=== PATIENT | male | born 1945 | race Asian ===

== ENCOUNTER 2023-05-25 12:53 | Inpatient (IN) | payer OTHER ==
[~2023-05-25] VITALS: Ht 157.5 cm; Wt 60.8 kg
[2023-05-25 12:57] VITALS: BP_SYST 112; PULSE 107; RESP 20; TEMP 96.8; O2SAT 95
[2023-05-25] MEDS ORDERED: cefTRIAXone 1 GM IVPB PREMIX 50 ML IV ONE (13:30)
[2023-05-25] MEDS ORDERED: NS 1000 ML IV.SOLN IV ONE (13:30)
[2023-05-25 13:50] LABS: BASOPHILS # (AUTO) 0.1 K/uL (0.0-0.2); BASOPHILS % (AUTO) 0.7 % (0.0-2.0); EOSINOPHILS % (AUTO) 0.1 % (0.0-4.0); HEMATOCRIT 39.6 % (36-54); LYMPHOCYTES # (AUTO) 1.7 K/uL (1.0-5.5); LYMPHOCYTES % (AUTO) 20.6 % (20.5-51.5); MEAN CORPUSCULAR HEMOGLOBIN 32 pg (27-31); MEAN CORPUSCULAR HGB CONC 33 % (32-36); MEAN CORPUSCULAR VOLUME 98 fL (79.0-98.0); MONOCYTES # (AUTO) 1.3 K/uL (0.0-1.0); MONOCYTES % (AUTO) 15.5 % (1.7-9.3); NEUTROPHILS # (AUTO) 5.3 K/uL (1.8-7.7); NEUTROPHILS % (AUTO) 63.1 % (40.0-70.0); PLATELET COUNT (AUTO) 198 K/uL (130-430); RED BLOOD CELL COUNT(AUTO) 4.05 MIL/uL (4.2-6.2); RED CELL DISTRIBUTION WIDTH 13.5 % (9.0-15.0); WHITE BLOOD COUNT (AUTO) 8.4 K/uL (4.8-10.8)
[2023-05-25 14:23] LABS: ALANINE AMINOTRANSFERASE 34 U/L (12-78); ALBUMIN 3.2 g/dL (3.4-4.8); ANION GAP 10 (5-15); ASPARTATE AMINOTRANSFERASE 35 U/L (10-37); CARBON DIOXIDE 31 mmol/L (23-29); CHLORIDE 104 mmol/L (98-107); CREATININE 0.99 mg/dL (0.55-1.30); GLUCOSE 226 mg/dL (74-106); POTASSIUM 3.6 mmol/L (3.5-5.1); SODIUM SERUM 145 mmol/L (136-145); TOTAL PROTEIN, SERUM 6.6 g/dL (6.4-8.3); UREA NITROGEN, BLOOD 16 mg/dL (8-21)
[2023-05-25 14:28] LABS: CALCIUM 13.8 mg/dL (8.4-11.0)
[2023-05-25] MEDS ORDERED: NACL 0.9% 1,000 ML IV ONE (14:30)
[2023-05-25 15:54] LABS: PHOSPHORUS 3.3 mg/dL (2.7-4.5)
[2023-05-25 15:56] LABS: BILIRUBIN,URINE NEGATIVE (NEGATIVE); BLOOD, URINE NEGATIVE (NEGATIVE); CLARITY/URINE SLIGHTLY HAZY (CLEAR); COLOR,URINE YELLOW (YELLOW); GLUCOSE,URINE NEGATIVE (NEGATIVE); KETONES,URINE NEGATIVE (NEGATIVE); LEUKOCYTE ESTERASE ,URINE NEGATIVE (NEGATIVE); NITRITE, URINE NEGATIVE (NEGATIVE); PH,URINE 5.5 (5.0-8.0); PROTEIN URINE NEGATIVE (NEGATIVE); UROBILINOGEN,URINE 0.2 (0.2-1.0)
[2023-05-25] MEDS ORDERED: iohexoL 350 mgI/mL, 100 ML INFUS..BTL IV ONE (15:56)
[2023-05-25] MEDS: 0.45% NACL 1,000 ML IV SCH (16:47)
[2023-05-25] MEDS ORDERED: PAMIDRONATE DISODIUM 30 MG in NS 500 ML IV ONE (18:00)
[2023-05-25 21:00] VITALS: BP_SYST 126; PULSE 99; RESP 18; TEMP 97.2
[2023-05-26 06:13] VITALS: BP_SYST 107; PULSE 92; RESP 18; TEMP 97.9; O2SAT 99
[2023-05-26 08:00] VITALS: BP_SYST 135; PULSE 95; RESP 20; TEMP 97.3; O2SAT 96
[2023-05-26 08:06] LABS: FREE PSA 0.16 ng/mL; PROSTATE SPECIFIC AG TOTAL 0.5 ng/mL (0.0-4.0)
[2023-05-26 12:00] VITALS: BP_SYST 118; PULSE 96; RESP 18; TEMP 97.2; O2SAT 94
[2023-05-26] MEDS ORDERED: AZITHROMYCIN 250 MG in NS 250 ML IV SCH (14:00)
[2023-05-26 14:12] LABS: INFLUENZA TYPE A negative (NEGATIVE); INFLUENZA TYPE B NEGATIVE (NEGATIVE)
[2023-05-26 19:06] VITALS: BP_SYST 122; PULSE 98; RESP 16; TEMP 97.6; O2SAT 94
[2023-05-26 20:00] VITALS: BP_SYST 123; PULSE 95; RESP 18; TEMP 98.5; O2SAT 95
[2023-05-26] MEDS: 0.45% NACL 1,000 ML IV SCH (20:32)
[2023-05-27] VITALS (7 sets, daily range): BP systolic 115–133; PULSE 80–99; RESP 18; TEMP 97.3–98.3; O2SAT 93–96
[2023-05-27 04:48] LABS: BASOPHILS % (AUTO) 0.5 % (0.0-2.0); EOSINOPHILS # (AUTO) 0.1 K/uL (0.0-0.4); EOSINOPHILS % (AUTO) 0.8 % (0.0-4.0); HEMATOCRIT 33.6 % (36-54); HEMOGLOBIN 11.2 g/dL (14.0-18.0); LYMPHOCYTES # (AUTO) 2.5 K/uL (1.0-5.5); LYMPHOCYTES % (AUTO) 32.7 % (20.5-51.5); MEAN CORPUSCULAR HEMOGLOBIN 33 pg (27-31); MEAN CORPUSCULAR HGB CONC 33 % (32-36); MEAN CORPUSCULAR VOLUME 98 fL (79.0-98.0); MONOCYTES # (AUTO) 0.8 K/uL (0.0-1.0); MONOCYTES % (AUTO) 10.3 % (1.7-9.3); NEUTROPHILS # (AUTO) 4.3 K/uL (1.8-7.7); NEUTROPHILS % (AUTO) 55.7 % (40.0-70.0); PLATELET COUNT (AUTO) 153 K/uL (130-430); RED BLOOD CELL COUNT(AUTO) 3.45 MIL/uL (4.2-6.2); RED CELL DISTRIBUTION WIDTH 13.2 % (9.0-15.0); WHITE BLOOD COUNT (AUTO) 7.7 K/uL (4.8-10.8)
[2023-05-27 04:57] LABS: ALANINE AMINOTRANSFERASE 28 U/L (12-78); ALBUMIN 2.4 g/dL (3.4-4.8); ANION GAP 5 (5-15); ASPARTATE AMINOTRANSFERASE 35 U/L (10-37); CALCIUM 10.3 mg/dL (8.4-11.0); CARBON DIOXIDE 30 mmol/L (23-29); CHLORIDE 108 mmol/L (98-107); CREATININE 0.83 mg/dL (0.55-1.30); GLUCOSE 109 mg/dL (74-106); SODIUM SERUM 143 mmol/L (136-145); TOTAL BILIRUBIN 0.7 mg/dL (0.0-1.0); TOTAL PROTEIN, SERUM 5.2 g/dL (6.4-8.3); UREA NITROGEN, BLOOD 11 mg/dL (8-21)
[2023-05-27] MEDS: 0.45% NACL 1,000 ML IV SCH ×2 (08:30→20:42)
[2023-05-27] MEDS ORDERED: KCL 20 mEq in 100 mL (PREMIX) 100 ML IV ONE ×2 (12:00→14:00)
[2023-05-27 12:06] LABS: A/G RATIO 0.7 (0.7-1.7); ALBUMIN 2.2 g/dL (2.9-4.4); ALPHA-1-GLOBULIN 0.2 g/dL (0.0-0.4); ALPHA-2-GLOBULIN 0.6 g/dL (0.4-1.0); BETA GLOBULIN 1.1 g/dL (0.7-1.3); GAMMA GLOBULIN 1.5 g/dL (0.4-1.8); GLOBULIN, TOTAL 3.3 g/dL (2.2-3.9); M-SPIKE Not Observed g/dL (Not Observed)
[2023-05-27 13:24] LABS: ALBUMIN 2.7 g/dL (3.4-4.8); ANION GAP 4 (5-15); ASPARTATE AMINOTRANSFERASE 41 U/L (10-37); CALCIUM 10.1 mg/dL (8.4-11.0); CARBON DIOXIDE 32 mmol/L (23-29); CHLORIDE 102 mmol/L (98-107); CREATININE 1.04 mg/dL (0.55-1.30); GLUCOSE 232 mg/dL (74-106); PHOSPHORUS 2.3 mg/dL (2.7-4.5); POTASSIUM 3.4 mmol/L (3.5-5.1); SODIUM SERUM 138 mmol/L (136-145); TOTAL BILIRUBIN 0.5 mg/dL (0.0-1.0); TOTAL PROTEIN, SERUM 5.6 g/dL (6.4-8.3); UREA NITROGEN, BLOOD 14 mg/dL (8-21)
[2023-05-27 13:33] LABS: ALANINE AMINOTRANSFERASE 26 U/L (12-78)
[2023-05-27 16:07] LABS: CALCIUM, IONIZED 6.7 mg/dL (4.5-5.6)
[2023-05-27] MEDS ORDERED: NS IV ONE (19:15)
[2023-05-27] MEDS ORDERED: NA PHOS 30 MM in NS 250 ML IV ONE (19:15)
[2023-05-27] MEDS ORDERED: NA PHOS IV ONE (19:15)
[2023-05-27] MEDS: AZITHROMYCIN 250 MG in NS 250 ML IV SCH (21:59)
[2023-05-27] MEDS: PANTOPRAZOLE SODIUM 40 MG/VIAL (PROTONIX) IVP SCH (23:21)
[2023-05-27] MEDS: MAG-AL HYDROX/SIMETH 30 ML UDC PO PRN (23:21)
[2023-05-27] MEDS ORDERED: SODIUM PHOSPHATE IN 0.9 % NACL 250 ML IV ONE (23:55)
[2023-05-28] MEDS ORDERED: NA PHOS 30 MM in NS 250 ML IV ONE (01:00)
[2023-05-28] MEDS ORDERED: NS IV ONE (01:15)
[2023-05-28] MEDS ORDERED: NA PHOS IV ONE (01:15)
[2023-05-28 05:30] LABS: BASOPHILS % (AUTO) 0.5 % (0.0-2.0); EOSINOPHILS # (AUTO) 0.1 K/uL (0.0-0.4); HEMATOCRIT 31.6 % (36-54); HEMOGLOBIN 10.7 g/dL (14.0-18.0); LYMPHOCYTES # (AUTO) 2.6 K/uL (1.0-5.5); LYMPHOCYTES % (AUTO) 34.2 % (20.5-51.5); MEAN CORPUSCULAR HEMOGLOBIN 33 pg (27-31); MEAN CORPUSCULAR HGB CONC 34 % (32-36); MEAN CORPUSCULAR VOLUME 97 fL (79.0-98.0); MONOCYTES # (AUTO) 1.1 K/uL (0.0-1.0); MONOCYTES % (AUTO) 14.6 % (1.7-9.3); NEUTROPHILS # (AUTO) 3.7 K/uL (1.8-7.7); NEUTROPHILS % (AUTO) 49.7 % (40.0-70.0); PLATELET COUNT (AUTO) 146 K/uL (130-430); RED BLOOD CELL COUNT(AUTO) 3.26 MIL/uL (4.2-6.2); RED CELL DISTRIBUTION WIDTH 13.4 % (9.0-15.0); WHITE BLOOD COUNT (AUTO) 7.5 K/uL (4.8-10.8)
[2023-05-28 05:59] LABS: ANION GAP 8 (5-15); CALCIUM 9.2 mg/dL (8.4-11.0); CARBON DIOXIDE 28 mmol/L (23-29); CHLORIDE 107 mmol/L (98-107); CREATININE 0.65 mg/dL (0.55-1.30); GLUCOSE 122 mg/dL (74-106); POTASSIUM 3.1 mmol/L (3.5-5.1); SODIUM SERUM 143 mmol/L (136-145); UREA NITROGEN, BLOOD 12 mg/dL (8-21)
[2023-05-28 08:00] VITALS: O2SAT 94
[2023-05-28 08:30] VITALS: BP_SYST 119; PULSE 94; RESP 18; TEMP 98; O2SAT 94
[2023-05-28] MEDS: PANTOPRAZOLE SODIUM 40 MG/VIAL (PROTONIX) IVP SCH ×2 (09:04→23:18)
[2023-05-28] MEDS ORDERED: KCL 40 mEq in 100 mL (PREMIX) 40 MEQ, LIDOCAINE JECT 2% PF 100 MG 75 MG in NS 150 ML IV ONE (10:15)
[2023-05-28] MEDS ORDERED: POTASSIUM CHLORIDE 20 MEQ TAB.PRT.SR PO ONE (10:45)
[2023-05-28] MEDS: 0.45% NACL 1,000 ML IV SCH ×3 (11:07→23:20)
[2023-05-28 12:50] VITALS: BP_SYST 118; PULSE 96; RESP 17; TEMP 98.1; O2SAT 98
[2023-05-28] MEDS: POTASSIUM CHLORIDE 20 mEq in 100 mL (PREMIX) 100 ML x 2 doses IV SCH ×2 (13:57→16:13)
[2023-05-28] MEDS: MAG-AL HYDROX/SIMETH 30 ML UDC PO PRN (13:59)
[2023-05-28 16:00] VITALS: BP_SYST 120; PULSE 95; RESP 18; TEMP 98; O2SAT 96
[2023-05-28] MEDS ORDERED: POLYETHYLENE GLYCOL 3350, 17 GM/ POWD.PACK PO ONE (17:45)
[2023-05-28 20:00] VITALS: BP_SYST 125; PULSE 96; RESP 18; TEMP 97.6; O2SAT 97
[2023-05-28] MEDS: AZITHROMYCIN 250 MG in NS 250 ML IV SCH (23:19)
[2023-05-29] VITALS (7 sets, daily range): BP systolic 111–151; PULSE 98–110; RESP 16–18; TEMP 97.4–98.3; O2SAT 95–98
[2023-05-29] MEDS ORDERED: POLYETHYLENE GLYCOL 3350, 17 GM/ POWD.PACK PO ONE (06:00)
[2023-05-29 06:28] LABS: ALANINE AMINOTRANSFERASE 35 U/L (12-78); ALBUMIN 2.4 g/dL (3.4-4.8); ANION GAP 9 (5-15); ASPARTATE AMINOTRANSFERASE 45 U/L (10-37); CALCIUM 9.4 mg/dL (8.4-11.0); CARBON DIOXIDE 27 mmol/L (23-29); CHLORIDE 107 mmol/L (98-107); CREATININE 0.68 mg/dL (0.55-1.30); GLUCOSE 127 mg/dL (74-106); PHOSPHORUS 1.8 mg/dL (2.7-4.5); POTASSIUM 3.6 mmol/L (3.5-5.1); SODIUM SERUM 143 mmol/L (136-145); TOTAL BILIRUBIN 0.6 mg/dL (0.0-1.0); TOTAL PROTEIN, SERUM 5.2 g/dL (6.4-8.3); UREA NITROGEN, BLOOD 10 mg/dL (8-21)
[2023-05-29 07:24] LABS: TOTAL IRON BIND. CAPACITY 208 ug/dL (250-450)
[2023-05-29] MEDS ORDERED: NA PHOS 30 MM in NS 250 ML IV ONE ×2 (10:30)
[2023-05-29] MEDS: PANTOPRAZOLE SODIUM 40 MG/VIAL (PROTONIX) IVP SCH ×2 (10:38→21:05)
[2023-05-29] MEDS ORDERED: MAGNESIUM SULFATE IN WATER 100 ML IV ONE (11:00)
[2023-05-29] MEDS: 0.45% NACL 1,000 ML IV SCH ×2 (12:39→18:20)
[2023-05-29] MEDS ORDERED: BISACODYL 5 MG TABLET.DR (DULCOLAX) PO ONE (17:00)
[2023-05-29] MEDS ORDERED: GOLYTELY / COLYTE SOLUTION 4 LITERS PO ONE (18:00)
[2023-05-29] MEDS: AZITHROMYCIN 250 MG in NS 250 ML IV SCH (21:06)
[2023-05-30 00:37] VITALS: BP_SYST 95; PULSE 83; RESP 15; TEMP 97; O2SAT 91
[2023-05-30 05:29] LABS: ALANINE AMINOTRANSFERASE 35 U/L (12-78); ALBUMIN 2.4 g/dL (3.4-4.8); ANION GAP 8 (5-15); ASPARTATE AMINOTRANSFERASE 46 U/L (10-37); CALCIUM 9.4 mg/dL (8.4-11.0); CARBON DIOXIDE 29 mmol/L (23-29); CHLORIDE 108 mmol/L (98-107); GLUCOSE 106 mg/dL (74-106); PHOSPHORUS 2.4 mg/dL (2.7-4.5); POTASSIUM 3.3 mmol/L (3.5-5.1); SODIUM SERUM 145 mmol/L (136-145); TOTAL BILIRUBIN 0.8 mg/dL (0.0-1.0); TOTAL PROTEIN, SERUM 5.1 g/dL (6.4-8.3); UREA NITROGEN, BLOOD 4 mg/dL (8-21)
[2023-05-30 05:44] LABS: INR 1.1 (0.80-1.20); PROTHROMBIN TIME 11.7 SECS (9.5-12.5)
[2023-05-30 08:00] VITALS: BP_SYST 122; PULSE 102; RESP 16; TEMP 97.4; O2SAT 96
[2023-05-30] MEDS: PANTOPRAZOLE SODIUM 40 MG/VIAL (PROTONIX) IVP SCH ×2 (09:11→22:50)
[2023-05-30 11:30] VITALS: BP_SYST 119; PULSE 98; RESP 17; TEMP 98.2; O2SAT 95
[2023-05-30] MEDS ORDERED: SIMETHICONE 40 MG/0.6 ML ML ONE (15:29)
[2023-05-30] MEDS ORDERED: MEPERIDINE 100 MG INJ. 100 MG/ML VIAL ONE (15:46)
[2023-05-30] MEDS ORDERED: MIDAZOLAM HCL 5 MG/5 ML VIAL ONE (15:46)
[2023-05-30 20:00] VITALS: BP_SYST 125; PULSE 95; RESP 18; TEMP 97.5; O2SAT 96
[2023-05-30] MEDS: AZITHROMYCIN 250 MG in NS 250 ML IV SCH (22:51)
[2023-05-30] MEDS: 0.45% NACL 1,000 ML IV SCH (22:52)
[2023-05-31] VITALS (7 sets, daily range): BP systolic 119–157; PULSE 100–117; RESP 16–20; TEMP 97.8–99; O2SAT 91–96
[2023-05-31 01:06] LABS: FOLATE (FOLIC ACID) 16.8 ng/mL (>3.0)
[2023-05-31] MEDS: 0.45% NACL 1,000 ML IV SCH ×2 (04:24→17:59)
[2023-05-31 05:05] LABS: BASOPHILS # (AUTO) 0.1 K/uL (0.0-0.2); BASOPHILS % (AUTO) 0.8 % (0.0-2.0); EOSINOPHILS # (AUTO) 0.1 K/uL (0.0-0.4); EOSINOPHILS % (AUTO) 0.9 % (0.0-4.0); HEMATOCRIT 32.8 % (36-54); HEMOGLOBIN 11.2 g/dL (14.0-18.0); LYMPHOCYTES % (AUTO) 37.9 % (20.5-51.5); MEAN CORPUSCULAR HEMOGLOBIN 34 pg (27-31); MEAN CORPUSCULAR HGB CONC 34 % (32-36); MEAN CORPUSCULAR VOLUME 98 fL (79.0-98.0); MONOCYTES # (AUTO) 1.1 K/uL (0.0-1.0); MONOCYTES % (AUTO) 10.8 % (1.7-9.3); NEUTROPHILS # (AUTO) 5.3 K/uL (1.8-7.7); NEUTROPHILS % (AUTO) 49.6 % (40.0-70.0); PLATELET COUNT (AUTO) 155 K/uL (130-430); RED BLOOD CELL COUNT(AUTO) 3.36 MIL/uL (4.2-6.2); RED CELL DISTRIBUTION WIDTH 13.6 % (9.0-15.0); WHITE BLOOD COUNT (AUTO) 10.7 K/uL (4.8-10.8)
[2023-05-31 05:23] LABS: ALANINE AMINOTRANSFERASE 34 U/L (12-78); ALBUMIN 2.3 g/dL (3.4-4.8); ANION GAP 9 (5-15); ASPARTATE AMINOTRANSFERASE 54 U/L (10-37); CALCIUM 10.3 mg/dL (8.4-11.0); CARBON DIOXIDE 27 mmol/L (23-29); CHLORIDE 107 mmol/L (98-107); GLUCOSE 79 mg/dL (74-106); POTASSIUM 3.6 mmol/L (3.5-5.1); SODIUM SERUM 143 mmol/L (136-145); TOTAL BILIRUBIN 0.8 mg/dL (0.0-1.0); TOTAL PROTEIN, SERUM 5.1 g/dL (6.4-8.3); UREA NITROGEN, BLOOD 7 mg/dL (8-21)
[2023-05-31] MEDS: PANTOPRAZOLE SODIUM 40 MG/VIAL (PROTONIX) IVP SCH (10:23)
[2023-05-31] MEDS ORDERED: DIATR MEGLU/DIATRIZ SOD 30 ML SOLUTION PO ONE (10:44)
[2023-05-31] MEDS ORDERED: DEXL60CA6 PO (13:30)
[2023-05-31] MEDS: AZITHROMYCIN 250 MG in NS 250 ML IV SCH (21:00)
[2023-05-31] MEDS: PANTOPRAZOLE SODIUM 40 MG TAB PO SCH (21:06)
[2023-06-01] VITALS: BP_SYST 151; PULSE 111; RESP 21; TEMP 98; O2SAT 91
[2023-06-01 03:07] VITALS: BP_SYST 157; PULSE 117; RESP 20; TEMP 98.2; O2SAT 91
[2023-06-01] MEDS: 0.45% NACL 1,000 ML IV SCH ×2 (05:54→20:39)
[2023-06-01 08:00] VITALS: BP_SYST 149; PULSE 111; RESP 16; TEMP 98.8; O2SAT 95
[2023-06-01] MEDS: PANTOPRAZOLE SODIUM 40 MG TAB PO SCH ×2 (10:46→21:45)
[2023-06-01] MEDS ORDERED: SUCR1TAB2 PO (14:04)
[2023-06-01 15:07] VITALS: BP_SYST 122; PULSE 114; RESP 16; TEMP 98.1; O2SAT 95
[2023-06-01] MEDS: SUCRALFATE 1 GM TABLET PO SCH ×2 (15:19→21:45)
[2023-06-01 15:20] VITALS: BP_SYST 122; PULSE 114; RESP 16; TEMP 98.1; O2SAT 94
[2023-06-01 20:10] VITALS: BP_SYST 150; PULSE 69; RESP 16; TEMP 99.1; O2SAT 93
[2023-06-01 22:11] LABS: HEMATOCRIT 35.7 % (36-54); HEMOGLOBIN 11.9 g/dL (14.0-18.0)
[2023-06-02 00:39] VITALS: BP_SYST 100; PULSE 116; RESP 16; TEMP 97.1; O2SAT 96
[2023-06-02 00:43] VITALS: BP_SYST 142; PULSE 116; RESP 18; TEMP 97.1; O2SAT 93
[2023-06-02 05:22] LABS: BASOPHILS # (AUTO) 0.1 K/uL (0.0-0.2); HEMOGLOBIN 11.5 g/dL (14.0-18.0)
[2023-06-02 05:30] LABS: BASOPHILS % (AUTO) 0.5 % (0.0-2.0); HEMATOCRIT 33.4 % (36-54); LYMPHOCYTES % (AUTO) 44.6 % (20.5-51.5); MEAN CORPUSCULAR HEMOGLOBIN 33 pg (27-31); MEAN CORPUSCULAR HGB CONC 34 % (32-36); MEAN CORPUSCULAR VOLUME 96 fL (79.0-98.0); MONOCYTES # (AUTO) 1.7 K/uL (0.0-1.0); MONOCYTES % (AUTO) 12.8 % (1.7-9.3); NEUTROPHILS # (AUTO) 5.6 K/uL (1.8-7.7); NEUTROPHILS % (AUTO) 42.1 % (40.0-70.0); PLATELET COUNT (AUTO) 143 K/uL (130-430); RED BLOOD CELL COUNT(AUTO) 3.47 MIL/uL (4.2-6.2); RED CELL DISTRIBUTION WIDTH 13.9 % (9.0-15.0); WHITE BLOOD COUNT (AUTO) 13.4 K/uL (4.8-10.8)
[2023-06-02 05:43] LABS: ALANINE AMINOTRANSFERASE 36 U/L (12-78); ALBUMIN 2.3 g/dL (3.4-4.8); ANION GAP 10 (5-15); ASPARTATE AMINOTRANSFERASE 60 U/L (10-37); CARBON DIOXIDE 28 mmol/L (23-29); CHLORIDE 102 mmol/L (98-107); CREATININE 0.89 mg/dL (0.55-1.30); GLUCOSE 149 mg/dL (74-106); POTASSIUM 3.3 mmol/L (3.5-5.1); SODIUM SERUM 140 mmol/L (136-145); TOTAL BILIRUBIN 1.6 mg/dL (0.0-1.0); UREA NITROGEN, BLOOD 13 mg/dL (8-21)
[2023-06-02 08:00] VITALS: BP_SYST 132; PULSE 114; RESP 16; TEMP 97.1; O2SAT 93
[2023-06-02 09:07] LABS: COCCIDIOIDES AB IGG 0.5 IV (<=0.9)
[2023-06-02] MEDS: PANTOPRAZOLE SODIUM 40 MG TAB PO SCH ×2 (09:20→20:31)
[2023-06-02] MEDS: SUCRALFATE 1 GM TABLET PO SCH ×3 (09:20→20:31)
[2023-06-02] MEDS: 0.45% NACL 1,000 ML IV SCH ×2 (09:25→23:39)
[2023-06-02] MEDS ORDERED: ZOLEDRONIC ACID 4 MG in NS 100 ML IV ONE (11:30)
[2023-06-02 12:00] VITALS: BP_SYST 106; PULSE 85; RESP 18; TEMP 98.6; O2SAT 94
[2023-06-02 16:00] VITALS: BP_SYST 108; PULSE 82; RESP 18; TEMP 98; O2SAT 96
[2023-06-02 20:05] VITALS: BP_SYST 130; PULSE 116; RESP 18; TEMP 99.1; O2SAT 94
[2023-06-02] MEDS ORDERED: KCL 20 mEq in 100 mL (PREMIX) 100 ML IV ONE (22:00)
[2023-06-03 00:41] VITALS: BP_SYST 140; PULSE 114; RESP 19; TEMP 98; O2SAT 92
[2023-06-03] MEDS ORDERED: KCL 20 mEq in 100 mL (PREMIX) 100 ML IV ONE (00:45)
[2023-06-03 05:55] LABS: BASOPHILS # (AUTO) 0.1 K/uL (0.0-0.2); BASOPHILS % (AUTO) 0.5 % (0.0-2.0); EOSINOPHILS % (AUTO) 0.1 % (0.0-4.0); HEMATOCRIT 32.8 % (36-54); HEMOGLOBIN 11.2 g/dL (14.0-18.0); LYMPHOCYTES # (AUTO) 7.3 K/uL (1.0-5.5); LYMPHOCYTES % (AUTO) 48.7 % (20.5-51.5); MEAN CORPUSCULAR HEMOGLOBIN 34 pg (27-31); MEAN CORPUSCULAR HGB CONC 34 % (32-36); MEAN CORPUSCULAR VOLUME 98 fL (79.0-98.0); MONOCYTES # (AUTO) 1.3 K/uL (0.0-1.0); MONOCYTES % (AUTO) 8.9 % (1.7-9.3); NEUTROPHILS # (AUTO) 6.3 K/uL (1.8-7.7); NEUTROPHILS % (AUTO) 41.8 % (40.0-70.0); PLATELET COUNT (AUTO) 133 K/uL (130-430); RED BLOOD CELL COUNT(AUTO) 3.35 MIL/uL (4.2-6.2); RED CELL DISTRIBUTION WIDTH 13.8 % (9.0-15.0); WHITE BLOOD COUNT (AUTO) 15.1 K/uL (4.8-10.8)
[2023-06-03 06:02] LABS: ANION GAP 8 (5-15); CARBON DIOXIDE 30 mmol/L (23-29); CHLORIDE 103 mmol/L (98-107); CREATININE 0.95 mg/dL (0.55-1.30); GLUCOSE 196 mg/dL (74-106); POTASSIUM 3.7 mmol/L (3.5-5.1); SODIUM SERUM 141 mmol/L (136-145); UREA NITROGEN, BLOOD 21 mg/dL (8-21)
[2023-06-03 06:04] LABS: CALCIUM 13.4 mg/dL (8.4-11.0)
[2023-06-03 08:00] VITALS: BP_SYST 141; PULSE 110; RESP 17; TEMP 96.3; O2SAT 90
[2023-06-03] MEDS: SUCRALFATE 1 GM TABLET PO SCH ×3 (09:00→21:14)
[2023-06-03] MEDS: PANTOPRAZOLE SODIUM 40 MG TAB PO SCH ×3 (09:00→21:14)
[2023-06-03] MEDS ORDERED: METOPROLOL SUCCINATE 25 MG TAB.SR.24H (TOPROL XL) PO ONE (09:30)
[2023-06-03] MEDS: NACL 0.9% 1,000 ML IV SCH ×2 (09:50→21:16)
[2023-06-03] MEDS ORDERED: LACTOBACILLUS RHAMNOSUS GG 1 CAP CAPSULE PO ONE (11:00)
[2023-06-03 12:46] VITALS: BP_SYST 112; PULSE 108; RESP 16; TEMP 98.9; O2SAT 94
[2023-06-03 16:00] VITALS: BP_SYST 129; PULSE 99; RESP 20; TEMP 96.9; O2SAT 93
[2023-06-03 19:55] VITALS: O2SAT 95
[2023-06-03 19:56] VITALS: BP_SYST 135; PULSE 108; RESP 18; TEMP 97.6; O2SAT 95
[2023-06-04 00:53] VITALS: BP_SYST 117; PULSE 110; RESP 21; TEMP 97.4; O2SAT 93
[2023-06-04 05:57] LABS: BASOPHILS # (AUTO) 0.1 K/uL (0.0-0.2); BASOPHILS % (AUTO) 0.5 % (0.0-2.0); EOSINOPHILS % (AUTO) 0.1 % (0.0-4.0); HEMOGLOBIN 10.5 g/dL (14.0-18.0); LYMPHOCYTES # (AUTO) 6.4 K/uL (1.0-5.5); LYMPHOCYTES % (AUTO) 46.9 % (20.5-51.5); MEAN CORPUSCULAR HEMOGLOBIN 33 pg (27-31); MEAN CORPUSCULAR HGB CONC 34 % (32-36); MEAN CORPUSCULAR VOLUME 98 fL (79.0-98.0); MONOCYTES # (AUTO) 1.7 K/uL (0.0-1.0); MONOCYTES % (AUTO) 12.5 % (1.7-9.3); NEUTROPHILS # (AUTO) 5.4 K/uL (1.8-7.7); PLATELET COUNT (AUTO) 118 K/uL (130-430); RED BLOOD CELL COUNT(AUTO) 3.18 MIL/uL (4.2-6.2); RED CELL DISTRIBUTION WIDTH 14.2 % (9.0-15.0); WHITE BLOOD COUNT (AUTO) 13.6 K/uL (4.8-10.8)
[2023-06-04 06:06] LABS: ERYTHROCYTE SEDIMENTATION RATE < 1 MM/HR (0-15)
[2023-06-04 06:07] LABS: ANION GAP 7 (5-15); CALCIUM 11.6 mg/dL (8.4-11.0); CARBON DIOXIDE 30 mmol/L (23-29); CHLORIDE 103 mmol/L (98-107); CREATININE 0.93 mg/dL (0.55-1.30); GLUCOSE 108 mg/dL (74-106); POTASSIUM 3.2 mmol/L (3.5-5.1); SODIUM SERUM 140 mmol/L (136-145); UREA NITROGEN, BLOOD 22 mg/dL (8-21)
[2023-06-04 08:00] VITALS: BP_SYST 112; PULSE 105; RESP 16; TEMP 99; O2SAT 95; O2SAT 98
[2023-06-04] MEDS ORDERED: METOPROLOL SUCCINATE 25 MG TAB.SR.24H (TOPROL XL) PO SCH (09:00)
[2023-06-04] MEDS: PANTOPRAZOLE SODIUM 40 MG TAB PO SCH ×2 (10:08→20:42)
[2023-06-04] MEDS: SUCRALFATE 1 GM TABLET PO SCH ×3 (10:08→20:42)
[2023-06-04] MEDS: LACTOBACILLUS RHAMNOSUS GG 1 CAP CAPSULE PO SCH (10:09)
[2023-06-04] MEDS: NACL 0.9% 1,000 ML IV SCH (12:23)
[2023-06-04 12:33] VITALS: BP_SYST 118; PULSE 102; RESP 17; TEMP 97.4; O2SAT 95
[2023-06-04] MEDS ORDERED: POTASSIUM CHLORIDE 20 MEQ TAB.PRT.SR PO ONE (13:30)
[2023-06-04 16:06] VITALS: BP_SYST 116; PULSE 100; RESP 17; TEMP 97.7; O2SAT 96
[2023-06-04 20:00] VITALS: BP_SYST 96; PULSE 91; RESP 16; TEMP 98.1; O2SAT 93
[2023-06-05 01:25] VITALS: BP_SYST 114; PULSE 103; RESP 17; TEMP 97.7; O2SAT 93
[2023-06-05] MEDS: NACL 0.9% 1,000 ML IV SCH ×2 (02:33→16:51)
[2023-06-05 06:01] LABS: ERYTHROCYTE SEDIMENTATION RATE < 1 MM/HR (0-15)
[2023-06-05 06:13] LABS: BASOPHILS # (AUTO) 0.1 K/uL (0.0-0.2); BASOPHILS % (AUTO) 0.5 % (0.0-2.0); EOSINOPHILS % (AUTO) 0.1 % (0.0-4.0); HEMATOCRIT 29.3 % (36-54); HEMOGLOBIN 9.9 g/dL (14.0-18.0); LYMPHOCYTES # (AUTO) 6.8 K/uL (1.0-5.5); MEAN CORPUSCULAR HEMOGLOBIN 34 pg (27-31); MEAN CORPUSCULAR HGB CONC 34 % (32-36); MEAN CORPUSCULAR VOLUME 99 fL (79.0-98.0); MONOCYTES # (AUTO) 1.7 K/uL (0.0-1.0); MONOCYTES % (AUTO) 12.6 % (1.7-9.3); NEUTROPHILS % (AUTO) 36.8 % (40.0-70.0); PLATELET COUNT (AUTO) 102 K/uL (130-430); RED BLOOD CELL COUNT(AUTO) 2.97 MIL/uL (4.2-6.2); RED CELL DISTRIBUTION WIDTH 14.3 % (9.0-15.0); WHITE BLOOD COUNT (AUTO) 13.5 K/uL (4.8-10.8)
[2023-06-05 06:24] LABS: ANION GAP 8 (5-15); CALCIUM 10.5 mg/dL (8.4-11.0); CARBON DIOXIDE 29 mmol/L (23-29); CHLORIDE 107 mmol/L (98-107); CREATININE 0.84 mg/dL (0.55-1.30); GLUCOSE 83 mg/dL (74-106); POTASSIUM 3.3 mmol/L (3.5-5.1); SODIUM SERUM 144 mmol/L (136-145); UREA NITROGEN, BLOOD 22 mg/dL (8-21)
[2023-06-05 08:00] VITALS: O2SAT 95
[2023-06-05] MEDS: LACTOBACILLUS RHAMNOSUS GG 1 CAP CAPSULE PO SCH (09:01)
[2023-06-05] MEDS: SUCRALFATE 1 GM TABLET PO SCH ×3 (09:01→21:38)
[2023-06-05] MEDS: PANTOPRAZOLE SODIUM 40 MG TAB PO SCH ×2 (09:01→21:38)
[2023-06-05] MEDS: METOPROLOL SUCCINATE 50 MG TAB.SR.24H (TOPROL XL) PO SCH (09:02)
[2023-06-05] MEDS ORDERED: ACETAMINOPHEN 500 MG TABLET PO PRN (10:15)
[2023-06-05] MEDS: ACETAMINOPHEN 325 MG TABLET PO PRN (10:44)
[2023-06-05] MEDS ORDERED: ACETAMINOPHEN 325 MG TABLET PO PRN (10:45)
[2023-06-05 11:33] VITALS: BP_SYST 95; PULSE 92; RESP 18; TEMP 98.6; O2SAT 95
[2023-06-05] MEDS ORDERED: POTASSIUM CHLORIDE 20 MEQ TAB.PRT.SR PO ONE (14:45)
[2023-06-05 15:37] VITALS: BP_SYST 106; PULSE 90; RESP 18; TEMP 97.5; O2SAT 97
[2023-06-05 19:30] VITALS: BP_SYST 124; PULSE 92; RESP 18; TEMP 99
[2023-06-06 01:53] VITALS: BP_SYST 112; PULSE 84; RESP 16; TEMP 98.5; O2SAT 96
[2023-06-06 04:10] LABS: ERYTHROCYTE SEDIMENTATION RATE < 1 MM/HR (0-15)
[2023-06-06 04:21] LABS: BASOPHILS # (AUTO) 0.1 K/uL (0.0-0.2); BASOPHILS % (AUTO) 0.6 % (0.0-2.0); EOSINOPHILS % (AUTO) 0.1 % (0.0-4.0); HEMATOCRIT 30.1 % (36-54); LYMPHOCYTES # (AUTO) 8.6 K/uL (1.0-5.5); LYMPHOCYTES % (AUTO) 58.4 % (20.5-51.5); MEAN CORPUSCULAR HEMOGLOBIN 33 pg (27-31); MEAN CORPUSCULAR HGB CONC 33 % (32-36); MEAN CORPUSCULAR VOLUME 100 fL (79.0-98.0); MONOCYTES # (AUTO) 1.2 K/uL (0.0-1.0); MONOCYTES % (AUTO) 8.5 % (1.7-9.3); NEUTROPHILS # (AUTO) 4.8 K/uL (1.8-7.7); NEUTROPHILS % (AUTO) 32.4 % (40.0-70.0); PLATELET COUNT (AUTO) 99 K/uL (130-430); RED BLOOD CELL COUNT(AUTO) 3.02 MIL/uL (4.2-6.2); RED CELL DISTRIBUTION WIDTH 14.7 % (9.0-15.0); WHITE BLOOD COUNT (AUTO) 14.8 K/uL (4.8-10.8)
[2023-06-06] MEDS: NACL 0.9% 1,000 ML IV SCH ×2 (04:39→09:58)
[2023-06-06 04:41] LABS: ALANINE AMINOTRANSFERASE 22 U/L (12-78); ANION GAP 9 (5-15); ASPARTATE AMINOTRANSFERASE 70 U/L (10-37); CALCIUM 10.4 mg/dL (8.4-11.0); CARBON DIOXIDE 26 mmol/L (23-29); CHLORIDE 106 mmol/L (98-107); CREATININE 0.87 mg/dL (0.55-1.30); GLUCOSE 75 mg/dL (74-106); POTASSIUM 3.5 mmol/L (3.5-5.1); SODIUM SERUM 141 mmol/L (136-145); TOTAL BILIRUBIN 2.5 mg/dL (0.0-1.0); TOTAL PROTEIN, SERUM 4.5 g/dL (6.4-8.3); UREA NITROGEN, BLOOD 20 mg/dL (8-21)
[2023-06-06 08:00] VITALS: BP_SYST 121; PULSE 95; RESP 16; TEMP 98.8; O2SAT 95
[2023-06-06] MEDS: LACTOBACILLUS RHAMNOSUS GG 1 CAP CAPSULE PO SCH (09:56)
[2023-06-06] MEDS: PANTOPRAZOLE SODIUM 40 MG TAB PO SCH ×2 (09:56→21:19)
[2023-06-06] MEDS: SUCRALFATE 1 GM TABLET PO SCH ×3 (09:56→21:19)
[2023-06-06] MEDS: METOPROLOL SUCCINATE 50 MG TAB.SR.24H (TOPROL XL) PO SCH (09:56)
[2023-06-06 11:16] VITALS: BP_SYST 131; PULSE 104; RESP 20; TEMP 98.7; O2SAT 97
[2023-06-06 16:39] VITALS: BP_SYST 121; PULSE 97; RESP 20; TEMP 98; O2SAT 98
[2023-06-06 20:00] VITALS: BP_SYST 121; PULSE 99; RESP 18; TEMP 97.1; O2SAT 96
[2023-06-07 00:43] VITALS: BP_SYST 122; PULSE 98; RESP 19; TEMP 97.7; O2SAT 96
[2023-06-07 04:55] LABS: ERYTHROCYTE SEDIMENTATION RATE < 1 MM/HR (0-15)
[2023-06-07 04:58] LABS: BASOPHILS # (AUTO) 0.1 K/uL (0.0-0.2); BASOPHILS % (AUTO) 0.5 % (0.0-2.0); HEMATOCRIT 30.8 % (36-54); HEMOGLOBIN 10.3 g/dL (14.0-18.0); LYMPHOCYTES # (AUTO) 9.4 K/uL (1.0-5.5); LYMPHOCYTES % (AUTO) 56.7 % (20.5-51.5); MEAN CORPUSCULAR HEMOGLOBIN 33 pg (27-31); MEAN CORPUSCULAR HGB CONC 33 % (32-36); MEAN CORPUSCULAR VOLUME 99 fL (79.0-98.0); MONOCYTES # (AUTO) 1.7 K/uL (0.0-1.0); MONOCYTES % (AUTO) 10.3 % (1.7-9.3); NEUTROPHILS # (AUTO) 5.4 K/uL (1.8-7.7); NEUTROPHILS % (AUTO) 32.5 % (40.0-70.0); PLATELET COUNT (AUTO) 89 K/uL (130-430); RED BLOOD CELL COUNT(AUTO) 3.11 MIL/uL (4.2-6.2); WHITE BLOOD COUNT (AUTO) 16.5 K/uL (4.8-10.8)
[2023-06-07 05:15] LABS: ANION GAP 12 (5-15); CALCIUM 11.1 mg/dL (8.4-11.0); CARBON DIOXIDE 22 mmol/L (23-29); CHLORIDE 104 mmol/L (98-107); CREATININE 0.89 mg/dL (0.55-1.30); GLUCOSE 93 mg/dL (74-106); POTASSIUM 3.2 mmol/L (3.5-5.1); SODIUM SERUM 138 mmol/L (136-145); UREA NITROGEN, BLOOD 14 mg/dL (8-21)
[2023-06-07 08:40] VITALS: BP_SYST 124; PULSE 110; RESP 18; TEMP 98.6; O2SAT 95
[2023-06-07] MEDS: SUCRALFATE 1 GM TABLET PO SCH ×3 (09:33→20:38)
[2023-06-07] MEDS: PANTOPRAZOLE SODIUM 40 MG TAB PO SCH ×2 (09:33→20:38)
[2023-06-07] MEDS: LACTOBACILLUS RHAMNOSUS GG 1 CAP CAPSULE PO SCH (09:33)
[2023-06-07] MEDS: METOPROLOL SUCCINATE 50 MG TAB.SR.24H (TOPROL XL) PO SCH (09:34)
[2023-06-07 11:30] VITALS: BP_SYST 108; PULSE 98; RESP 17; TEMP 98.4; O2SAT 95
[2023-06-07] MEDS: FLUCONAZOLE 200 mg/ NS 100 ML IV SCH (11:40)
[2023-06-07] MEDS ORDERED: methylPREDNISolone SOD SUCC/PF 62.5 MG/ML VIAL IVP SCH (11:45)
[2023-06-07] MEDS ORDERED: KCL 20 mEq in 100 mL (PREMIX) 100 ML IV ONE (12:00)
[2023-06-07] MEDS: D5W IV SCH (13:44)
[2023-06-07] MEDS: METHYLPREDNISOLONE SOD SUCC IV SCH (13:44)
[2023-06-07 17:34] VITALS: BP_SYST 124; PULSE 101; RESP 17; TEMP 97.9; O2SAT 95
[2023-06-07 21:30] VITALS: O2SAT 95
[2023-06-08] VITALS (12 sets, daily range): BP systolic 88–127; PULSE 89–118; RESP 16–19; TEMP 96.8–98; O2SAT 93–97
[2023-06-08 05:05] LABS: BASOPHILS # (AUTO) 0.1 K/uL (0.0-0.2); BASOPHILS % (AUTO) 0.5 % (0.0-2.0); HEMATOCRIT 31.8 % (36-54); HEMOGLOBIN 10.5 g/dL (14.0-18.0); LYMPHOCYTES # (AUTO) 12.2 K/uL (1.0-5.5); LYMPHOCYTES % (AUTO) 68.1 % (20.5-51.5); MEAN CORPUSCULAR HEMOGLOBIN 33 pg (27-31); MEAN CORPUSCULAR HGB CONC 33 % (32-36); MEAN CORPUSCULAR VOLUME 100 fL (79.0-98.0); MONOCYTES # (AUTO) 0.3 K/uL (0.0-1.0); MONOCYTES % (AUTO) 1.8 % (1.7-9.3); NEUTROPHILS # (AUTO) 5.3 K/uL (1.8-7.7); NEUTROPHILS % (AUTO) 29.6 % (40.0-70.0); PLATELET COUNT (AUTO) 84 K/uL (130-430); RED BLOOD CELL COUNT(AUTO) 3.18 MIL/uL (4.2-6.2); WHITE BLOOD COUNT (AUTO) 17.9 K/uL (4.8-10.8)
[2023-06-08 05:17] LABS: ALANINE AMINOTRANSFERASE 29 U/L (12-78); ANION GAP 10 (5-15); ASPARTATE AMINOTRANSFERASE 65 U/L (10-37); CALCIUM 11.1 mg/dL (8.4-11.0); CARBON DIOXIDE 25 mmol/L (23-29); CHLORIDE 106 mmol/L (98-107); CREATININE 0.87 mg/dL (0.55-1.30); GLUCOSE 258 mg/dL (74-106); SODIUM SERUM 141 mmol/L (136-145); TOTAL BILIRUBIN 3.2 mg/dL (0.0-1.0); TOTAL PROTEIN, SERUM 4.5 g/dL (6.4-8.3); UREA NITROGEN, BLOOD 26 mg/dL (8-21)
[2023-06-08] MEDS ORDERED: PROPOFOL 200MG/ 20ML VIAL (DIPRIVAN) IV ONE (07:30)
[2023-06-08] MEDS ORDERED: HEPARIN SODIUM, PORCINE 10,000 UNITS/ 10 ML VIAL ONE (07:30)
[2023-06-08] MEDS ORDERED: PHENYLEPHRINE HCL 10 MG/ML VIAL (NEOSYNEPHRINE) ONE (07:30)
[2023-06-08] MEDS ORDERED: ceFAZolin SODIUM 1 GM VIAL ONE (07:30)
[2023-06-08] MEDS ORDERED: NS 100 ML BAG ONE (07:30)
[2023-06-08] MEDS ORDERED: METOPROLOL TARTRATE 5 MG/5 ML VIAL ONE (07:30)
[2023-06-08] MEDS ORDERED: LIDOCAINE 1% 10 MG/ML, 20 ML MDV ONE (07:30)
[2023-06-08] MEDS ORDERED: fentaNYL CITRATE/PF 100 MCG/2 ML AMP ONE (07:30)
[2023-06-08] MEDS ORDERED: LR 1,000 ML IV.SOLN IV ONE (07:30)
[2023-06-08] MEDS ORDERED: ePHEDrine sulfate 50 MG/ML VIAL ONE (07:30)
[2023-06-08] MEDS ORDERED: MIDAZOLAM HCL 2 MG/2 ML VIAL (VERSED) ONE (07:30)
[2023-06-08] MEDS: METOPROLOL SUCCINATE 50 MG TAB.SR.24H (TOPROL XL) PO SCH (09:00)
[2023-06-08] MEDS ORDERED: MORPHINE 4 MG INJ. 4 MG/ML VIAL IVP PRN (09:00)
[2023-06-08] MEDS: PANTOPRAZOLE SODIUM 40 MG TAB PO SCH ×2 (09:00→20:35)
[2023-06-08] MEDS: LACTOBACILLUS RHAMNOSUS GG 1 CAP CAPSULE PO SCH (09:00)
[2023-06-08] MEDS: SUCRALFATE 1 GM TABLET PO SCH ×3 (09:00→20:35)
[2023-06-08] MEDS ORDERED: HYDROcodone/ACETAMIN 5-325 MG TAB (NORCO/ VICODIN) PO PRN (09:00)
[2023-06-08] MEDS ORDERED: NALOXONE HCL 0.4 MG/ML AMP (NARCAN) IVP PRN (09:30)
[2023-06-08] MEDS ORDERED: LABETALOL 100 MG/ 20ML VIAL IVP PRN (09:30)
[2023-06-08] MEDS ORDERED: ePHEDrine sulfate 50 MG/ML VIAL IVP PRN (09:30)
[2023-06-08] MEDS ORDERED: MEPERIDINE HCL/PF 25 MG/ML DISP.SYRIN IVP PRN (09:30)
[2023-06-08] MEDS ORDERED: FLUMAZENIL 0.1 MG/ML IVP PRN (09:30)
[2023-06-08] MEDS ORDERED: ONDANSETRON HCL 4 MG/2 ML VIAL IVP PRN (09:30)
[2023-06-08] MEDS ORDERED: HYDROmorphone 1 MG/ML INJ. CARTRIDGE IVP PRN (09:30)
[2023-06-08] MEDS: FLUCONAZOLE 200 mg/ NS 100 ML IV SCH (11:19)
[2023-06-08 11:43] LABS: HEMATOCRIT 32.7 % (36-54); HEMOGLOBIN 10.9 g/dL (14.0-18.0); MEAN CORPUSCULAR HEMOGLOBIN 33 pg (27-31); MEAN CORPUSCULAR HGB CONC 33 % (32-36); MEAN CORPUSCULAR VOLUME 100 fL (79.0-98.0); PLATELET COUNT (AUTO) 75 K/uL (130-430); RED BLOOD CELL COUNT(AUTO) 3.29 MIL/uL (4.2-6.2); RED CELL DISTRIBUTION WIDTH 15.4 % (9.0-15.0); WHITE BLOOD COUNT (AUTO) 22.3 K/uL (4.8-10.8)
[2023-06-08 12:26] LABS: ATYPICAL LYMPHOCYTES % 7 % (0-0); BASOPHILS % (MANUAL) 0 % (0-2); EOSINOPHILS % (MANUAL) 0 % (0-7); LYMPHOCYTES % (MANUAL) 41 % (20-46); MONOCYTES % (MANUAL) 2 % (0-11); PLATELET ESTIMATE DECREASED (ADEQUATE)
[2023-06-08] MEDS: D5W IV SCH (13:58)
[2023-06-08] MEDS: METHYLPREDNISOLONE SOD SUCC IV SCH (13:58)
[2023-06-08 17:06] LABS: QUANTIFERON TB GOLD Indeterminate (Negative)
[2023-06-08] MEDS: ACETAMINOPHEN 325 MG TABLET PO PRN (20:36)
[2023-06-08] MEDS: NACL 0.9% 1,000 ML IV SCH (20:40)
[2023-06-08 22:06] LABS: COCCIDIOIDES AB IGG 0.5 IV (<=0.9)
[2023-06-09] VITALS (8 sets, daily range): BP systolic 99–133; PULSE 81–120; RESP 16–20; TEMP 97.1–98.5; O2SAT 94–97
[2023-06-09 05:11] LABS: BASOPHILS # (AUTO) 0.1 K/uL (0.0-0.2); BASOPHILS % (AUTO) 0.5 % (0.0-2.0); HEMATOCRIT 32.4 % (36-54); HEMOGLOBIN 10.8 g/dL (14.0-18.0); LYMPHOCYTES % (AUTO) 52.1 % (20.5-51.5); MEAN CORPUSCULAR HEMOGLOBIN 33 pg (27-31); MEAN CORPUSCULAR HGB CONC 33 % (32-36); MEAN CORPUSCULAR VOLUME 100 fL (79.0-98.0); MONOCYTES # (AUTO) 1.7 K/uL (0.0-1.0); MONOCYTES % (AUTO) 8.1 % (1.7-9.3); NEUTROPHILS # (AUTO) 8.3 K/uL (1.8-7.7); NEUTROPHILS % (AUTO) 39.3 % (40.0-70.0); PLATELET COUNT (AUTO) 60 K/uL (130-430); RED BLOOD CELL COUNT(AUTO) 3.22 MIL/uL (4.2-6.2); RED CELL DISTRIBUTION WIDTH 15.7 % (9.0-15.0); WHITE BLOOD COUNT (AUTO) 21.2 K/uL (4.8-10.8)
[2023-06-09 05:41] LABS: ANION GAP 11 (5-15); CALCIUM 9.7 mg/dL (8.4-11.0); CARBON DIOXIDE 24 mmol/L (23-29); CHLORIDE 107 mmol/L (98-107); CREATININE 1.06 mg/dL (0.55-1.30); GLUCOSE 334 mg/dL (74-106); POTASSIUM 3.7 mmol/L (3.5-5.1); SODIUM SERUM 142 mmol/L (136-145); UREA NITROGEN, BLOOD 29 mg/dL (8-21)
[2023-06-09] MEDS: SUCRALFATE 1 GM TABLET PO SCH ×3 (09:17→20:36)
[2023-06-09] MEDS: PANTOPRAZOLE SODIUM 40 MG TAB PO SCH ×2 (09:17→20:36)
[2023-06-09] MEDS: LACTOBACILLUS RHAMNOSUS GG 1 CAP CAPSULE PO SCH (09:17)
[2023-06-09] MEDS: METOPROLOL SUCCINATE 50 MG TAB.SR.24H (TOPROL XL) PO SCH (09:30)
[2023-06-09] MEDS: NACL 0.9% 1,000 ML IV SCH ×2 (09:32→23:10)
[2023-06-09] MEDS: FLUCONAZOLE 200 mg/ NS 100 ML IV SCH (11:49)
[2023-06-09] MEDS ORDERED: POTASSIUM CHLORIDE 20 MEQ TAB.PRT.SR PO ONE (12:00)
[2023-06-09] MEDS ORDERED: PRED20TA PO (12:38)
[2023-06-09] MEDS: D5W IV SCH (13:57)
[2023-06-09] MEDS: METHYLPREDNISOLONE SOD SUCC IV SCH (13:57)
[2023-06-10 00:17] VITALS: BP_SYST 120; PULSE 92; RESP 16; TEMP 96.8; O2SAT 96
[2023-06-10 05:42] LABS: BASOPHILS % (AUTO) 0.3 % (0.0-2.0); HEMATOCRIT 27.9 % (36-54); HEMOGLOBIN 9.2 g/dL (14.0-18.0); LYMPHOCYTES # (AUTO) 6.8 K/uL (1.0-5.5); LYMPHOCYTES % (AUTO) 46.2 % (20.5-51.5); MEAN CORPUSCULAR HEMOGLOBIN 33 pg (27-31); MEAN CORPUSCULAR HGB CONC 33 % (32-36); MEAN CORPUSCULAR VOLUME 100 fL (79.0-98.0); MONOCYTES # (AUTO) 0.7 K/uL (0.0-1.0); MONOCYTES % (AUTO) 4.9 % (1.7-9.3); NEUTROPHILS # (AUTO) 7.2 K/uL (1.8-7.7); NEUTROPHILS % (AUTO) 48.6 % (40.0-70.0); RED BLOOD CELL COUNT(AUTO) 2.78 MIL/uL (4.2-6.2); RED CELL DISTRIBUTION WIDTH 15.8 % (9.0-15.0); WHITE BLOOD COUNT (AUTO) 14.8 K/uL (4.8-10.8)
[2023-06-10 06:03] LABS: ALANINE AMINOTRANSFERASE 9 U/L (12-78); ALBUMIN 1.9 g/dL (3.4-4.8); ANION GAP 6 (5-15); ASPARTATE AMINOTRANSFERASE 23 U/L (10-37); CALCIUM 8.6 mg/dL (8.4-11.0); CARBON DIOXIDE 27 mmol/L (23-29); CHLORIDE 109 mmol/L (98-107); CREATININE 0.83 mg/dL (0.55-1.30); GLUCOSE 366 mg/dL (74-106); POTASSIUM 3.9 mmol/L (3.5-5.1); SODIUM SERUM 142 mmol/L (136-145); TOTAL BILIRUBIN 1.9 mg/dL (0.0-1.0); TOTAL PROTEIN, SERUM 4.1 g/dL (6.4-8.3); UREA NITROGEN, BLOOD 26 mg/dL (8-21)
[2023-06-10 06:05] LABS: PLATELET COUNT (AUTO) 41 K/uL (130-430)
[2023-06-10 08:00] VITALS: O2SAT 96
[2023-06-10] MEDS: predniSONE 20 MG TABLET PO SCH (08:19)
[2023-06-10] MEDS: SUCRALFATE 1 GM TABLET PO SCH ×3 (08:20→21:42)
[2023-06-10] MEDS: LACTOBACILLUS RHAMNOSUS GG 1 CAP CAPSULE PO SCH (08:20)
[2023-06-10] MEDS: METOPROLOL SUCCINATE 50 MG TAB.SR.24H (TOPROL XL) PO SCH (08:21)
[2023-06-10] MEDS ORDERED: PANTOPRAZOLE SODIUM 40 MG/VIAL (PROTONIX) IVP SCH (09:00)
[2023-06-10 11:07] LABS: CALCIUM, IONIZED 6.1 mg/dL (4.5-5.6)
[2023-06-10] MEDS: FLUCONAZOLE 200 mg/ NS 100 ML IV SCH (11:12)
[2023-06-10] MEDS: NACL 0.9% 1,000 ML IV SCH (12:30)
[2023-06-10 12:41] VITALS: BP_SYST 125; PULSE 91; RESP 18; TEMP 97.2; O2SAT 97
[2023-06-10 16:00] VITALS: BP_SYST 121; PULSE 90; RESP 17; TEMP 97; O2SAT 96
[2023-06-10 19:30] VITALS: BP_SYST 113; PULSE 94; RESP 18; TEMP 96.8; O2SAT 96
[2023-06-11 00:03] VITALS: BP_SYST 127; PULSE 82; RESP 16; TEMP 96.5; O2SAT 99
[2023-06-11] MEDS: NACL 0.9% 1,000 ML IV SCH ×2 (01:52→20:44)
[2023-06-11 05:19] LABS: BASOPHILS # (AUTO) 0.1 K/uL (0.0-0.2); BASOPHILS % (AUTO) 0.6 % (0.0-2.0); HEMOGLOBIN 9.4 g/dL (14.0-18.0); LYMPHOCYTES # (AUTO) 4.2 K/uL (1.0-5.5); LYMPHOCYTES % (AUTO) 38.5 % (20.5-51.5); MEAN CORPUSCULAR HEMOGLOBIN 34 pg (27-31); MEAN CORPUSCULAR HGB CONC 34 % (32-36); MEAN CORPUSCULAR VOLUME 102 fL (79.0-98.0); MONOCYTES # (AUTO) 1.2 K/uL (0.0-1.0); MONOCYTES % (AUTO) 11.2 % (1.7-9.3); NEUTROPHILS # (AUTO) 5.4 K/uL (1.8-7.7); NEUTROPHILS % (AUTO) 49.7 % (40.0-70.0); RED BLOOD CELL COUNT(AUTO) 2.76 MIL/uL (4.2-6.2); RED CELL DISTRIBUTION WIDTH 15.1 % (9.0-15.0); WHITE BLOOD COUNT (AUTO) 10.8 K/uL (4.8-10.8)
[2023-06-11 05:41] LABS: ALANINE AMINOTRANSFERASE 22 U/L (12-78); ALBUMIN 2.1 g/dL (3.4-4.8); ANION GAP 8 (5-15); ASPARTATE AMINOTRANSFERASE 18 U/L (10-37); CARBON DIOXIDE 27 mmol/L (23-29); CHLORIDE 110 mmol/L (98-107); CREATININE 0.85 mg/dL (0.55-1.30); POTASSIUM 3.1 mmol/L (3.5-5.1); SODIUM SERUM 145 mmol/L (136-145); TOTAL BILIRUBIN 1.6 mg/dL (0.0-1.0); TOTAL PROTEIN, SERUM 4.3 g/dL (6.4-8.3); UREA NITROGEN, BLOOD 24 mg/dL (8-21)
[2023-06-11 05:50] LABS: GLUCOSE 411 mg/dL (74-106)
[2023-06-11 05:52] LABS: PLATELET COUNT (AUTO) 26 K/uL (130-430)
[2023-06-11] MEDS ORDERED: INSULIN REGULAR, HUMAN 100 UNITS/ML, 3 ML VIAL SUBCUT ONE (06:45)
[2023-06-11 08:00] VITALS: BP_SYST 108; PULSE 101; RESP 16; TEMP 98.1; O2SAT 94
[2023-06-11] MEDS: LACTOBACILLUS RHAMNOSUS GG 1 CAP CAPSULE PO SCH (09:13)
[2023-06-11] MEDS: predniSONE 20 MG TABLET PO SCH (09:13)
[2023-06-11] MEDS: METOPROLOL SUCCINATE 50 MG TAB.SR.24H (TOPROL XL) PO SCH (09:14)
[2023-06-11] MEDS: SUCRALFATE 1 GM TABLET PO SCH ×3 (09:14→20:30)
[2023-06-11] MEDS ORDERED: POTASSIUM CHLORIDE 20 MEQ TAB.PRT.SR PO ONE ×2 (11:30→21:00)
[2023-06-11 12:00] VITALS: BP_SYST 117; PULSE 91; RESP 17; TEMP 97.2; O2SAT 97
[2023-06-11] MEDS: FLUCONAZOLE 200 mg/ NS 100 ML IV SCH (12:04)
[2023-06-11] MEDS: INSULIN REGULAR, HUMAN 100 UNITS/ML, 3 ML VIAL (humuLIN R) SUBCUT PRN ×2 (13:41→18:15)
[2023-06-11 13:50] LABS: HEMATOCRIT 26.4 % (36-54); HEMOGLOBIN 8.8 g/dL (14.0-18.0); LYMPHOCYTES # (AUTO) 3.1 K/uL (1.0-5.5); RED CELL DISTRIBUTION WIDTH 15.6 % (9.0-15.0); WHITE BLOOD COUNT (AUTO) 10.2 K/uL (4.8-10.8)
[2023-06-11 13:58] LABS: BASOPHILS % (AUTO) 0.3 % (0.0-2.0); LYMPHOCYTES % (AUTO) 30.4 % (20.5-51.5); MEAN CORPUSCULAR HEMOGLOBIN 34 pg (27-31); MEAN CORPUSCULAR HGB CONC 33 % (32-36); MEAN CORPUSCULAR VOLUME 101 fL (79.0-98.0); MONOCYTES # (AUTO) 1.1 K/uL (0.0-1.0); MONOCYTES % (AUTO) 11.2 % (1.7-9.3); RED BLOOD CELL COUNT(AUTO) 2.62 MIL/uL (4.2-6.2)
[2023-06-11 14:04] LABS: PLATELET COUNT (AUTO) 20 K/uL (130-430)
[2023-06-11 14:20] LABS: NEUTROPHILS % (AUTO) 58.1 % (40.0-70.0)
[2023-06-11] MEDS: PIPERACILLIN/TAZO 3.375/DEX-IS 50 ML IV SCH ×2 (14:46→23:43)
[2023-06-11 16:00] VITALS: BP_SYST 111; PULSE 99; RESP 16; TEMP 97.8; O2SAT 95
[2023-06-11 20:00] VITALS: BP_SYST 113; PULSE 85; RESP 18; TEMP 97.7; O2SAT 98
[2023-06-12 01:00] VITALS: BP_SYST 107; PULSE 71; RESP 18; TEMP 97.7; O2SAT 99
[2023-06-12] MEDS: NACL 0.9% 1,000 ML IV SCH ×2 (04:30→15:19)
[2023-06-12 05:29] LABS: BASOPHILS % (AUTO) 0.2 % (0.0-2.0); HEMATOCRIT 23.9 % (36-54); LYMPHOCYTES # (AUTO) 3.6 K/uL (1.0-5.5); LYMPHOCYTES % (AUTO) 42.4 % (20.5-51.5); MEAN CORPUSCULAR HEMOGLOBIN 34 pg (27-31); MEAN CORPUSCULAR HGB CONC 34 % (32-36); MEAN CORPUSCULAR VOLUME 100 fL (79.0-98.0); MONOCYTES # (AUTO) 0.5 K/uL (0.0-1.0); MONOCYTES % (AUTO) 5.6 % (1.7-9.3); NEUTROPHILS # (AUTO) 4.4 K/uL (1.8-7.7); NEUTROPHILS % (AUTO) 51.8 % (40.0-70.0); RED BLOOD CELL COUNT(AUTO) 2.38 MIL/uL (4.2-6.2); RED CELL DISTRIBUTION WIDTH 15.2 % (9.0-15.0); WHITE BLOOD COUNT (AUTO) 8.4 K/uL (4.8-10.8)
[2023-06-12 06:10] LABS: PLATELET COUNT (AUTO) 24 K/uL (130-430)
[2023-06-12] MEDS: PIPERACILLIN/TAZO 3.375/DEX-IS 50 ML IV SCH (06:12)
[2023-06-12 06:40] LABS: INR 1.3 (0.80-1.20); PROTHROMBIN TIME 13.4 SECS (9.5-12.5)
[2023-06-12 07:36] VITALS: BP_SYST 115; PULSE 85; TEMP 98.2; O2SAT 97
[2023-06-12] MEDS: LACTOBACILLUS RHAMNOSUS GG 1 CAP CAPSULE PO SCH (09:49)
[2023-06-12] MEDS: SUCRALFATE 1 GM TABLET PO SCH ×3 (09:50→20:28)
[2023-06-12] MEDS: predniSONE 20 MG TABLET PO SCH (09:50)
[2023-06-12] MEDS: METOPROLOL SUCCINATE 50 MG TAB.SR.24H (TOPROL XL) PO SCH (09:51)
[2023-06-12] MEDS: FLUCONAZOLE 200 mg/ NS 100 ML IV SCH (11:31)
[2023-06-12] MEDS: INSULIN REGULAR, HUMAN 100 UNITS/ML, 3 ML VIAL (humuLIN R) SUBCUT PRN ×3 (11:36→20:33)
[2023-06-12 12:00] VITALS: BP_SYST 111; PULSE 82; RESP 17; TEMP 98; O2SAT 97
[2023-06-12 16:00] VITALS: BP_SYST 113; PULSE 84; RESP 18; TEMP 98.3; O2SAT 96
[2023-06-12 20:00] VITALS: BP_SYST 104; PULSE 90; RESP 18; TEMP 98; O2SAT 98
[2023-06-13 00:49] VITALS: BP_SYST 120; PULSE 85; RESP 16; TEMP 97.2; O2SAT 100
[2023-06-13 05:30] LABS: INR 1.4 (0.80-1.20); PROTHROMBIN TIME 14.1 SECS (9.5-12.5)
[2023-06-13 05:35] LABS: BASOPHILS % (AUTO) 0.3 % (0.0-2.0); HEMOGLOBIN 8.1 g/dL (14.0-18.0); LYMPHOCYTES # (AUTO) 2.8 K/uL (1.0-5.5); LYMPHOCYTES % (AUTO) 39.5 % (20.5-51.5); MEAN CORPUSCULAR HEMOGLOBIN 34 pg (27-31); MEAN CORPUSCULAR HGB CONC 34 % (32-36); MEAN CORPUSCULAR VOLUME 101 fL (79.0-98.0); MONOCYTES # (AUTO) 0.5 K/uL (0.0-1.0); MONOCYTES % (AUTO) 6.8 % (1.7-9.3); NEUTROPHILS # (AUTO) 3.8 K/uL (1.8-7.7); NEUTROPHILS % (AUTO) 53.4 % (40.0-70.0); RED BLOOD CELL COUNT(AUTO) 2.37 MIL/uL (4.2-6.2); RED CELL DISTRIBUTION WIDTH 15.4 % (9.0-15.0); WHITE BLOOD COUNT (AUTO) 7.2 K/uL (4.8-10.8)
[2023-06-13 05:44] LABS: CARBON DIOXIDE 30 mmol/L (23-29); CHLORIDE 110 mmol/L (98-107); POTASSIUM 3.2 mmol/L (3.5-5.1); SODIUM SERUM 144 mmol/L (136-145)
[2023-06-13 05:45] LABS: ANION GAP 4 (5-15); CALCIUM 7.8 mg/dL (8.4-11.0); CREATININE 0.71 mg/dL (0.55-1.30); GLUCOSE 200 mg/dL (74-106); UREA NITROGEN, BLOOD 20 mg/dL (8-21)
[2023-06-13] MEDS: NACL 0.9% 1,000 ML IV SCH ×2 (06:25→20:08)
[2023-06-13 06:35] LABS: PLATELET COUNT (AUTO) 19 K/uL (130-430)
[2023-06-13] MEDS ORDERED: PHYTONADIONE 10 MG in NS 50 ML IV ONE (09:00)
[2023-06-13] MEDS: predniSONE 20 MG TABLET PO SCH (09:38)
[2023-06-13] MEDS: LACTOBACILLUS RHAMNOSUS GG 1 CAP CAPSULE PO SCH (09:39)
[2023-06-13] MEDS: SUCRALFATE 1 GM TABLET PO SCH ×3 (09:39→20:07)
[2023-06-13] MEDS: METOPROLOL SUCCINATE 50 MG TAB.SR.24H (TOPROL XL) PO SCH (09:40)
[2023-06-13 12:00] VITALS: BP_SYST 99; PULSE 92; RESP 16; TEMP 97.7; O2SAT 94
[2023-06-13] MEDS: INSULIN REGULAR, HUMAN 100 UNITS/ML, 3 ML VIAL (humuLIN R) SUBCUT PRN ×2 (12:53→18:18)
[2023-06-13] MEDS ORDERED: POTASSIUM CHLORIDE 20 MEQ/PKT PACKET PO ONE (13:00)
[2023-06-13 16:00] VITALS: BP_SYST 101; PULSE 88; RESP 18; TEMP 97.2; O2SAT 95
[2023-06-13 20:00] VITALS: BP_SYST 126; PULSE 90; RESP 18; TEMP 97.4; O2SAT 98
[2023-06-14 00:19] VITALS: BP_SYST 111; PULSE 82; RESP 16; TEMP 96.8; O2SAT 100
[2023-06-14 04:20] LABS: BASOPHILS % (AUTO) 0.4 % (0.0-2.0); HEMATOCRIT 26.4 % (36-54); HEMOGLOBIN 8.8 g/dL (14.0-18.0); LYMPHOCYTES # (AUTO) 3.7 K/uL (1.0-5.5); LYMPHOCYTES % (AUTO) 43.5 % (20.5-51.5); MEAN CORPUSCULAR HEMOGLOBIN 34 pg (27-31); MEAN CORPUSCULAR HGB CONC 33 % (32-36); MEAN CORPUSCULAR VOLUME 101 fL (79.0-98.0); MONOCYTES # (AUTO) 0.4 K/uL (0.0-1.0); MONOCYTES % (AUTO) 4.5 % (1.7-9.3); NEUTROPHILS # (AUTO) 4.4 K/uL (1.8-7.7); NEUTROPHILS % (AUTO) 51.6 % (40.0-70.0); RED BLOOD CELL COUNT(AUTO) 2.61 MIL/uL (4.2-6.2); RED CELL DISTRIBUTION WIDTH 16.4 % (9.0-15.0); WHITE BLOOD COUNT (AUTO) 8.6 K/uL (4.8-10.8)
[2023-06-14 04:35] LABS: PLATELET COUNT (AUTO) 22 K/uL (130-430)
[2023-06-14 04:44] LABS: INR 1.2 (0.80-1.20); PROTHROMBIN TIME 12.2 SECS (9.5-12.5)
[2023-06-14 08:48] VITALS: BP_SYST 119; PULSE 90; RESP 18; TEMP 97.4; O2SAT 97
[2023-06-14] MEDS: METOPROLOL SUCCINATE 50 MG TAB.SR.24H (TOPROL XL) PO SCH (08:59)
[2023-06-14] MEDS: SUCRALFATE 1 GM TABLET PO SCH ×3 (08:59→21:35)
[2023-06-14] MEDS: LACTOBACILLUS RHAMNOSUS GG 1 CAP CAPSULE PO SCH (08:59)
[2023-06-14] MEDS: predniSONE 20 MG TABLET PO SCH (09:00)
[2023-06-14] MEDS: NACL 0.9% 1,000 ML IV SCH ×2 (09:03→23:06)
[2023-06-14 12:41] VITALS: BP_SYST 101; PULSE 92; RESP 18; TEMP 98.8; O2SAT 98
[2023-06-14] MEDS: INSULIN REGULAR, HUMAN 100 UNITS/ML, 3 ML VIAL (humuLIN R) SUBCUT PRN ×2 (18:37→21:34)
[2023-06-14 18:55] VITALS: BP_SYST 106; PULSE 83; RESP 18; TEMP 97; O2SAT 97
[2023-06-15] VITALS: BP_SYST 119; PULSE 82; RESP 18; TEMP 97.5; O2SAT 99
[2023-06-15 08:00] VITALS: BP_SYST 104; PULSE 105; RESP 16; TEMP 98.2; O2SAT 96; O2SAT 97
[2023-06-15 08:03] LABS: ANION GAP 5 (5-15); CALCIUM 8.3 mg/dL (8.4-11.0); CARBON DIOXIDE 29 mmol/L (23-29); CHLORIDE 106 mmol/L (98-107); CREATININE 0.55 mg/dL (0.55-1.30); GLUCOSE 84 mg/dL (74-106); SODIUM SERUM 140 mmol/L (136-145); UREA NITROGEN, BLOOD 11 mg/dL (8-21)
[2023-06-15 08:20] LABS: HEMATOCRIT 23.6 % (36-54); HEMOGLOBIN 7.9 g/dL (14.0-18.0); MEAN CORPUSCULAR HEMOGLOBIN 34 pg (27-31); MEAN CORPUSCULAR HGB CONC 34 % (32-36); MEAN CORPUSCULAR VOLUME 102 fL (79.0-98.0); RED BLOOD CELL COUNT(AUTO) 2.32 MIL/uL (4.2-6.2); RED CELL DISTRIBUTION WIDTH 17.7 % (9.0-15.0)
[2023-06-15 08:26] LABS: PLATELET COUNT (AUTO) 23 K/uL (130-430)
[2023-06-15] MEDS: SUCRALFATE 1 GM TABLET PO SCH ×3 (09:33→21:53)
[2023-06-15] MEDS: LACTOBACILLUS RHAMNOSUS GG 1 CAP CAPSULE PO SCH (09:34)
[2023-06-15] MEDS: predniSONE 20 MG TABLET PO SCH (09:34)
[2023-06-15 09:48] VITALS: BP_SYST 89
[2023-06-15 11:10] VITALS: BP_SYST 98; PULSE 100; RESP 18; TEMP 98.8; O2SAT 98
[2023-06-15] MEDS ORDERED: POTASSIUM CHLORIDE 40 MEQ, LIDOCAINE JECT 2% PF 100 MG 50 MG in NS 250 ML IV ONE (12:00)
[2023-06-15] MEDS: NACL 0.9% 1,000 ML IV SCH (12:31)
[2023-06-15 13:10] LABS: MONOCYTES # (AUTO) 0.4 K/uL (0.0-1.0); NEUTROPHILS # (AUTO) 7.4 K/uL (1.8-7.7)
[2023-06-15 13:21] LABS: BASOPHILS # (AUTO) 0.5 K/uL (0.0-0.2); HEMATOCRIT 24.3 % (36-54); HEMOGLOBIN 8.2 g/dL (14.0-18.0); LYMPHOCYTES % (AUTO) 26.3 % (20.5-51.5); MEAN CORPUSCULAR HEMOGLOBIN 34 pg (27-31); MEAN CORPUSCULAR HGB CONC 34 % (32-36); MEAN CORPUSCULAR VOLUME 102 fL (79.0-98.0); MONOCYTES % (AUTO) 3.9 % (1.7-9.3); NEUTROPHILS % (AUTO) 65.8 % (40.0-70.0); RED BLOOD CELL COUNT(AUTO) 2.38 MIL/uL (4.2-6.2); RED CELL DISTRIBUTION WIDTH 16.7 % (9.0-15.0); WHITE BLOOD COUNT (AUTO) 11.2 K/uL (4.8-10.8)
[2023-06-15 13:24] LABS: PLATELET COUNT (AUTO) 27 K/uL (130-430)
[2023-06-15] MEDS: METOPROLOL SUCCINATE 50 MG TAB.SR.24H (TOPROL XL) PO SCH (17:24)
[2023-06-15] MEDS: INSULIN REGULAR, HUMAN 100 UNITS/ML, 3 ML VIAL (humuLIN R) SUBCUT PRN (17:44)
[2023-06-15 20:00] VITALS: BP_SYST 142; PULSE 72; RESP 18; TEMP 98.4; O2SAT 100; O2SAT 96
[2023-06-16 01:12] VITALS: BP_SYST 91; RESP 16; TEMP 98.1; O2SAT 96
[2023-06-16] MEDS: NACL 0.9% 1,000 ML IV SCH (06:12)
[2023-06-16 07:19] LABS: INR 1.3 (0.80-1.20); PROTHROMBIN TIME 13.7 SECS (9.5-12.5)
[2023-06-16 07:23] LABS: BASOPHILS % (AUTO) 0.3 % (0.0-2.0); HEMATOCRIT 22.5 % (36-54); HEMOGLOBIN 7.4 g/dL (14.0-18.0); LYMPHOCYTES % (AUTO) 41.4 % (20.5-51.5); MEAN CORPUSCULAR HEMOGLOBIN 34 pg (27-31); MEAN CORPUSCULAR HGB CONC 33 % (32-36); MEAN CORPUSCULAR VOLUME 103 fL (79.0-98.0); MONOCYTES # (AUTO) 0.5 K/uL (0.0-1.0); MONOCYTES % (AUTO) 4.2 % (1.7-9.3); NEUTROPHILS # (AUTO) 6.5 K/uL (1.8-7.7); NEUTROPHILS % (AUTO) 54.1 % (40.0-70.0); RED BLOOD CELL COUNT(AUTO) 2.18 MIL/uL (4.2-6.2); RED CELL DISTRIBUTION WIDTH 18.5 % (9.0-15.0)
[2023-06-16 07:33] LABS: PLATELET COUNT (AUTO) 32 K/uL (130-430)
[2023-06-16 08:00] VITALS: O2SAT 96
[2023-06-16 08:59] VITALS: BP_SYST 109; PULSE 98; RESP 18; TEMP 98
[2023-06-16] MEDS: predniSONE 20 MG TABLET PO SCH (09:08)
[2023-06-16] MEDS: METOPROLOL SUCCINATE 50 MG TAB.SR.24H (TOPROL XL) PO SCH (09:09)
[2023-06-16] MEDS: LACTOBACILLUS RHAMNOSUS GG 1 CAP CAPSULE PO SCH (09:09)
[2023-06-16] MEDS: SUCRALFATE 1 GM TABLET PO SCH (09:09)
[2023-06-16 09:44] VITALS: BP_SYST 109; PULSE 97; RESP 18; TEMP 98
[2023-06-16] MEDS: MAG-AL HYDROX/SIMETH 30 ML UDC PO PRN (10:43)
[2023-06-16 11:48] VITALS: BP_SYST 93; PULSE 104; RESP 18; TEMP 97; O2SAT 97
[2023-06-16 12:06] LABS: VIT D,1, 25-DIHYDROXY 85.4 pg/mL (24.8-81.5)
== END 2023-06-16 12:30 | disposition short-term general hospital (02) | DRG 840 ==
LOC: SED 12:53 → STU 16:15 → SMU 05-31 11:04 → STU 06-08 11:09
PROVIDERS: ADMIT Specialist; ATTEND Specialist
PROC: 0DBN8ZZ Excision of Sigmoid Colon, Via Natural or Artificial Opening Endoscopic (ICD-10-PCS; 2023-05-30)
PROC: 0DBM8ZZ Excision of Descending Colon, Via Natural or Artificial Opening Endoscopic (ICD-10-PCS; 2023-05-30)
PROC: 0DB68ZX Excision of Stomach, Via Natural or Artificial Opening Endoscopic, Diagnostic (ICD-10-PCS; principal; 2023-05-30 14:00)
PROC: 0DB78ZX Excision of Stomach, Pylorus, Via Natural or Artificial Opening Endoscopic, Diagnostic (ICD-10-PCS; 2023-05-30 14:00)
PROC: 0DBP8ZX Excision of Rectum, Via Natural or Artificial Opening Endoscopic, Diagnostic (ICD-10-PCS; 2023-05-30 14:00)
PROC: 0DBH8ZZ Excision of Cecum, Via Natural or Artificial Opening Endoscopic (ICD-10-PCS; 2023-05-30 14:00)
PROC: 0DBL8ZZ Excision of Transverse Colon, Via Natural or Artificial Opening Endoscopic (ICD-10-PCS; 2023-05-30 14:00)
PROC: 0JH63XZ Insertion of Tunneled Vascular Access Device into Chest Subcutaneous Tissue and Fascia, Percutaneous Approach (ICD-10-PCS; 2023-06-08)
PROC: 02HV33Z Insertion of Infusion Device into Superior Vena Cava, Percutaneous Approach (ICD-10-PCS; 2023-06-08)
PROC: B518ZZA Fluoroscopy of Superior Vena Cava, Guidance (ICD-10-PCS; 2023-06-08)
PROC: B548ZZA Ultrasonography of Superior Vena Cava, Guidance (ICD-10-PCS; 2023-06-08)
PROC: 30233R1 Transfusion of Nonautologous Platelets into Peripheral Vein, Percutaneous Approach (ICD-10-PCS; 2023-06-11)
DX: C86.6 Primary cutaneous CD30-positive T-cell proliferations (principal); D65 Disseminated intravascular coagulation [defibrination syndrome]; K26.4 Chronic or unspecified duodenal ulcer with hemorrhage; E43 Unspecified severe protein-calorie malnutrition; J96.00 Acute respiratory failure, unspecified whether with hypoxia or hypercapnia; K29.71 Gastritis, unspecified, with bleeding; J12.9 Viral pneumonia, unspecified; E83.52 Hypercalcemia; E87.5 Hyperkalemia; D63.8 Anemia in other chronic diseases classified elsewhere; K64.9 Unspecified hemorrhoids; M45.9 Ankylosing spondylitis of unspecified sites in spine; Z20.822 Contact with and (suspected) exposure to COVID-19; K57.90 Diverticulosis of intestine, part unspecified, without perforation or abscess without bleeding; E11.65 Type 2 diabetes mellitus with hyperglycemia; I10 Essential (primary) hypertension; E88.09 Other disorders of plasma-protein metabolism, not elsewhere classified; K63.5 Polyp of colon; Z68.24 Body mass index [BMI] 24.0-24.9, adult; Z87.891 Personal history of nicotine dependence; Z82.5 Family history of asthma and other chronic lower respiratory diseases; Z80.0 Family history of malignant neoplasm of digestive organs
CPT/HCPCS: 36415; 43239; 45380; 45381; 45384; 45385; 70450-TC; 71045; 71270-TC; 74018; 76000; 76376; 78278-TC; 78306; 80048; 80053; 81003; 82164; 82272; 82306; 82330; 82378; 82607; 82728; 82746; 82962; 83010; 83540; 83550; 83605; 83690; 83735; 83880; 83970; 84100; 84153; 84155; 84156; 84165; 84166; 84484; 85007; 85018; 85025; 85027; 85044; 85379; 85384; 85610-TC; 85651-TC; 85730-TC; 86480; 86635; 86738; 86886; 86900; 86901; 87040; 87070-TC; 87081; 87086; 87205-TC; 87230-TC; 88305; 88312; 88313; 88341; 88342; 88361; 93005; 93306; 93970; 96365; 97110-GP; 97116-GP; 97163-GP; 97530-GP; 99285; A9503; C1788; C1889; C9113; G0378; J0456; J0690; J0696; J1450; J1644; J1815; J1956; J2001; J2175; J2250; J2370; J2430; J2543; J2704; J3010; J3430; J3465; J3475; J3480; J3490; J7030; J7040; J7050; J7060; J7120; J7512; P9012; P9034; Q9964; Q9967